=== PATIENT | male | born 1935 | race Caucasian/White ===

== ENCOUNTER 2020-12-26 19:17 | Emergency (ER) | payer MEDICARE, OTHER ==
[~2020-12-26] VITALS: Ht 177.8 cm; Wt 89.6 kg
[2020-12-26] MEDS ORDERED: ASPI81CH33 PO (19:39)
[2020-12-26] MEDS ORDERED: ROSU40TA4 PO (19:39)
[2020-12-26] MEDS ORDERED: BOOSTRIX/ADACEL VACCINE (DIPHTH/PERTUSS/ACELL/TETANUS) 0.5ML SYR IM ONE (20:50)
--- NOTE | 2020-12-26 22:07 | REPVR ---
PROCEDURE INFORMATION: Exam: XR Left Hand Exam date and time: 12/26/2020 9:27 PM Age: 85 years old Clinical indication: Other: Trauma to left rin and pinky finger; Additional info: Trauma to left ring pinky finger TECHNIQUE: Imaging protocol: XR Left hand. Views: 3 or more views. COMPARISON: No relevant prior studies available. FINDINGS: Bones/joints: Osteopenia. Joint narrowing at interphalangeal joints, particularly DIP joints. Constriction at the base of the ring finger. No fractures. Soft tissues: Suggestion of soft tissue injury in the proximal ring and 5th fingers. IMPRESSION: 1. 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 2. Soft tissue constriction at the base of the ring finger and suggestion of soft tissue injury of the proximal ring and 5th fingers. 3. Otherwise negative ring and little fingers. No fractures. Electronically signed by: Prem Hopkins On 12/26/2020 22:07:03 PM
[2020-12-26] MEDS ORDERED: LIDOCAINE 1% MDV 20ML VIAL As Ordered ONE (22:13)
[2020-12-26] MEDS ORDERED: LIDOCAINE 1% MDV 20ML VIAL SC ONE (22:15)
[2020-12-26 23:20] VITALS: BP 131/86
== END 2020-12-26 23:58 | disposition home or self-care (01) ==
LOC: M ED 19:17
DX: S61.216A Laceration without foreign body of right little finger without damage to nail, initial encounter (principal); S61.214A Laceration without foreign body of right ring finger without damage to nail, initial encounter; W27.0XXA Contact with workbench tool, initial encounter; Y92.9 Unspecified place or not applicable; Y93.9 Activity, unspecified; Y99.9 Unspecified external cause status; Z79.82 Long term (current) use of aspirin; Z79.899 Other long term (current) drug therapy